=== PATIENT | female | born 1975 | race Caucasian/White ===

== ENCOUNTER 2020-07-30 11:09 | Emergency (ER) | payer OTHER, SELFPAY ==
[2020-07-30 11:23] VITALS: BP 135/77; PULSE 75; RESP 17; TEMP 36.8; O2SAT 99; BMI 30.4
[2020-07-30 11:35] VITALS: BP 146/91; PULSE 81; RESP 18; O2SAT 95
--- NOTE | 2020-07-30 11:44 | ED_ITS ---
HPI - Headache General: Chief Complaint: Headache Stated Complaint: flu like symptoms Time Seen by Provider: 07/30/20 11:26 History of Present Illness: HPI Narrative: 45-year-old female complaining of bilateral frontal sinus pain and pressure as well as below the eyes in the maxillary sinuses she also some posterior eye pain that started a few days ago headache got worse last night and the eyes and the samaritan she denies any nausea vomiting diarrhea no dyspnea no cough no fever no sweats or chills. No myalgias. Associated symptoms: Deny chest pain, fever(s), malaise, nausea, rash or vomiting Review of Systems Const: Denies: fever(s), chills, body aches, change in appetite, fatigue or malaise ENMT: Denies: throat pain, ear or mastoid pain, nasal discharge or nasal congestion Card: Denies: chest pain, edema, dyspnea on exertion or orthopnea Resp: Denies: dyspnea, productive cough or non-productive cough GI: Denies: abdominal pain, nausea, vomiting, hematemesis, coffee ground emesis, diarrhea, constipation, bloating, hematochezia or melena : Denies: flank pain, difficulty voiding, dysuria, urinary frequency or urinary urgency Skin/Breast: Denies: rash or pruritus PFSH ED PFSH: Medical History (Updated 07/30/20 @ 14:15 by Carlton Urbano DO) ADHD Gout Surgical History (Updated 07/30/20 @ 14:15 by Carlton Urbano DO) H/O Achilles tendon repair Social History (Updated 07/30/20 @ 14:15 by Carlton Urbano DO) Smoking and tobacco status: never smoked Alcohol intake: never Physical Exam Const: COMMON NORMALS: no acute distress GENERAL APPEARANCE: cooperative and comfortable ORIENTATION/CONSCIOUSNESS: Yes awake, Yes oriented to person, Yes oriented to place and Yes oriented to time HENMT: COMMON NORMALS: normocephalic, atraumatic and hearing grossly normal bilaterally HEAD & SCALP: normocephalic and atraumatic Eye: COMMON NORMALS: Equal, round and reactive pupils present, EOMs intact carole aterally, conjunctivae normal and no scleral icterus CONJUNCTIVA: Yes conjunctivae normal PUPIL: Yes Equal, round and reactive pupils present Neck/C-Spine: COMMON NORMALS: full ROM, no lymphadenopathy, supple and no JVD Lymph: LYMPHATIC: no lymphadenopathy noted and no lymphedema noted Resp: COMMON NORMALS: normal respiratory effort, No retractions, No use of accessory muscles and clear to auscultation bilaterally AUSCULTATION: clear to auscultation bilaterally Cardio: COMMON NORMALS: no JVD, regular rate, regular rhythm and No murmurs present (Cardio) RATE: regular rate RHYTHM: regular rhythm GI: COMMON NORMALS: Soft to palpation and No hepatosplenomegaly present AUSCULTATION: Yes normoactive bowel sounds PALPATION: Yes Soft to palpation, No Tenderness to palpation present (GI), No Guarding due to palpation present (GI) and Yes No hepatosplenomegaly present Extremity: COMMON NORMALS: normal to inspection, capillary refill normal, no clubbing, cyanosis or edema, no calf tenderness and no pedal edema Neuro: SENSORIUM/ORIENTATION: Yes oriented to person, Yes oriented to place and Yes oriented to time Skin: COMMON NORMALS: no rashes or lesions noted GENERAL SKIN EXAM: no rashes or lesions noted Course Vital Signs: Vital signs: Vital Signs Temperature 98.2 F 07/30/20 11:23 Pulse Rate 79 07/30/20 12:04 Respiratory Rate 16 07/30/20 12:04 Blood Pressure 111/79 07/30/20 12:04 Pulse Oximetry 98 07/30/20 12:04 MDM - Headache MDM Narrative: Medical decision making narrative: Exam focal to a sinusitis treat with Augmentin follow-up as needed Discharge Plan Discharge Patient Disposition: Home Clinical Impression: Sinusitis Condition: Stable Prescriptions: New Augmentin 875-125 mg tablet 1 tab PO BID Qty: 20 RF: 0 pseudoephedrine HCl 30 mg tablet 30 mg PO Q6H PRN (Reason: nasal congestion) Qty: 14 RF: 0 Discharge Orders: Discharge Order (Routine); Ordered 07/30/20 Ordered By: Carlton Urbano Referrals: Donita Jaffe FNP [Primary Care Provider] - Discharge Diet: Usual diet Discharge Activity: Increase activity as tolerated Activity Restrictions/Additional Instructions: Follow-up with her primary care doctor as needed Discharge Date/Time: 07/30/20 12:04 Coding Level of Care Code ED Event Marketing Intern for [employer]
[2020-07-30 12:04] VITALS: BP 111/79; PULSE 79; RESP 16; O2SAT 98
== END 2020-07-30 12:04 | disposition home or self-care (01) ==
PROVIDERS: Emergency Provider Family Medicine; PCP Nurse Practitioner Family
DX: J32.9 Chronic sinusitis, unspecified (principal)
CPT/HCPCS: 12345; 99282

== ENCOUNTER → 2021-02-12 14:29 | Outpatient (BNVA) | payer OTHER, SELFPAY | PROVIDERS: PCP Nurse Practitioner Family; Visit Provider Podiatrist Foot & Ankle Surgery | DX: M79.672 Pain in left foot (principal); M79.671 Pain in right foot; M77.32 Calcaneal spur, left foot; M77.31 Calcaneal spur, right foot | CPT/HCPCS: 73630 ==